=== PATIENT | male | born 1955 | race Caucasian/White ===

== ENCOUNTER 2016-10-04 18:50 | Emergency (ER) | payer MEDICARE, MEDICAID ==
[~2016-10-04 18:50] MED LIST: APRISO0.375 GM PO; ASACOL HD800 MG PO; ASACOL400 MG; AZASAN75 M1 PO; AZASAN75 MG PO; BENTYL10 MG PO; CELEXA20 MG PO; HYDROCORTISONE ENEMA PR; LAMICTAL100 MG PO; LEVOTHROID150 MCG PO; LEVOTHYROXINE125 MC1 PO; PERCOCET 5/3251 TAB PO; PREDNISONE20 M1 PO; TESTOSTERO100 MG/1 M IM; [UNRECOGNIZED DRUG - OTHER]
== END 2016-10-04 20:38 ==
LOC: EDMED 18:50
PROC: 0HQMXZZ Repair Right Foot Skin, External Approach (ICD-10-PCS; principal; 2016-10-04)
DX: S91.011A Laceration without foreign body, right ankle, initial encounter (principal); Z23 Encounter for immunization; W22.8XXA Striking against or struck by other objects, initial encounter; Y92.22 Religious institution as the place of occurrence of the external cause